=== PATIENT | male | born 1945 | race Caucasian/White ===

== ENCOUNTER 2017-08-30 17:47 | Emergency (ER) | payer OTHER ==
[~2017-08-30] VITALS: Ht 180.3 cm; Wt 113.4 kg
[~2017-08-30 17:47] MED LIST: LOVAZA1 G; METFORMIN HCL1000 MG
[2017-08-30] MEDS ORDERED: COZAAR50 MG (18:43)
[2017-08-30] MEDS ORDERED: LIPITOR20 MG (18:44)
[2017-08-30] MEDS ORDERED: PNEU16DI2 (18:44)
[2017-08-30] MEDS ORDERED: FARXIGA5 MG (18:44)
[2017-08-31] MEDS ORDERED: LEVAQUIN750 MG PO (05:45)
[2017-08-31] MEDS ORDERED: LEVALBUTER1.25 MG/3 IH (05:45)
[2017-08-31] MEDS ORDERED: BUDESONIDE0.5 MG/2 M IH (05:45)
[2017-08-31] MEDS ORDERED: MEDROLPACK PO (05:45)
== END 2017-08-31 05:55 | disposition home or self-care (01) ==
LOC: ER 17:47
DX: J45.998 Other asthma (principal); J11.1 Influenza due to unidentified influenza virus with other respiratory manifestations

== ENCOUNTER 2023-01-29 18:01 | Emergency (ER) | payer OTHER ==
[~2023-01-29] VITALS: Ht 180.3 cm; Wt 104.3 kg
[~2023-01-29 18:01] MED LIST changes: +BUDESONIDE0.5 MG/2 M IH; +COZAAR50 MG; +FARXIGA5 MG; +LEVALBUTER1.25 MG/3 IH; +LEVAQUIN750 MG PO; +LIPITOR20 MG; +MEDROLPACK PO; +PNEU16DI2
== END 2023-01-29 20:21 | disposition home or self-care (01) ==
LOC: ER 18:01
DX: R05.8 Other specified cough (principal); J45.998 Other asthma; I10 Essential (primary) hypertension; E11.9 Type 2 diabetes mellitus without complications; Z79.84 Long term (current) use of oral hypoglycemic drugs